=== PATIENT | female | born 1975 | race Caucasian/White ===

== ENCOUNTER 2017-10-04 19:43 | Emergency (ER) | payer OTHER ==
[~2017-10-04] VITALS: Ht 149.9 cm; Wt 59.0 kg
[~2017-10-04 19:43] MED LIST changes: -IOPAMIDOL 370 MG/ML 200 ML INFUS..BTL INJ ONE; -SODIUM CHLORIDE 0.9% 50ML 50 ML ONE
[2017-10-04 20:30] LABS: BASOPHILS % 0.4 % (0.0-1.0); EOSINOPHILS # (AUTO) 0.1 (0.0-0.4); EOSINOPHILS % 0.5 % (0.0-6.0); HEMATOCRIT 36.6 % (34.2-44.1); HEMOGLOBIN 13.2 g/dL (12.0-16.0); LYMPHOCYTES # (AUTO) 2.1 (1.0-3.2); LYMPHOCYTES % 20.7 % (18.0-39.1); MEAN CORPUSCULAR HEMOGLOBIN 32.2 pg (28-32); MEAN CORPUSCULAR HGB CONC 36.1 g/dL (31-35); MEAN CORPUSCULAR VOLUME 89.3 fL (81-99); MONOCYTES # (AUTO) 0.9 (0.2-0.8); MONOCYTES % 9.2 % (4.4-11.3); NEUTROPHILS # (AUTO) 6.9 (2.1-6.9); NEUTROPHILS % 68.9 % (38.7-80.0); PLATELET COUNT 335 x10e3/uL (140-360); RED CELL DISTRIBUTION WIDTH 12.5 % (11.7-14.4)
[2017-10-04 20:36] LABS: INR 0.87; PROTHROMBIN TIME 12.3 seconds (11.9-14.5)
[2017-10-04 20:37] LABS: PARTIAL THROMBOPLASTIN TIME 33.3 seconds (23.8-35.5)
[2017-10-04 20:48] LABS: ALANINE AMINOTRANSFERASE 33 IU/L (0-55); ALBUMIN 3.8 g/dL (3.5-5.0); ALBUMIN/GLOBULIN RATIO 0.9 (0.8-2.0); ALKALINE PHOSPHATASE 115 IU/L (40-150); ANION GAP 13.3 mmol/L (8-16); BLOOD UREA NITROGEN 7 mg/dL (7-26); BUN/CREATININE RATIO 10 (6-25); CALCIUM 9.6 mg/dL (8.4-10.2); CARBON DIOXIDE 26 mmol/L (22-29); CHLORIDE 104 mmol/L (98-107); CREATININE, SERUM 0.73 mg/dL (0.57-1.11); EST GLOMERULAR FILTRATION RATE > 60 ML/MIN (60-); GLUCOSE 98 mg/dL (74-118); POTASSIUM 3.3 mmol/L (3.5-5.1); SODIUM 140 mmol/L (136-145)
[2017-10-04] MEDS ORDERED: KETOROLAC TROMETHAMINE 30 MG/ML VIAL IV STA (21:58)
[2017-10-04] MEDS ORDERED: ONDANSETRON HCL INJ 2 MG/ML VIAL IV STA (21:58)
[2017-10-04] MEDS ORDERED: KETOROLAC TROMETHAMINE 30 MG/ML VIAL ONE (22:01)
[2017-10-04] MEDS ORDERED: ONDANSETRON HCL INJ 2 MG/ML VIAL ONE (22:01)
[2017-10-05 01:07] VITALS: BP 111/75
== END 2017-10-05 01:07 | disposition short-term general hospital (02) ==
LOC: ER 19:43
DX: R10.31 Right lower quadrant pain (principal); R10.32 Left lower quadrant pain; R11.2 Nausea with vomiting, unspecified; N83.9 Noninflammatory disorder of ovary, fallopian tube and broad ligament, unspecified; K51.90 Ulcerative colitis, unspecified, without complications
CPT/HCPCS: 36415; 80053; 83690; 85025; 85610; 85730; 96374; 96376; 99284; J1885; J2405

== ENCOUNTER → 2017-10-04 | Outpatient (CLI) | payer OTHER ==
[~2017-10-04] MED LIST: BENTYL; DICYCLOMINE; IOPAMIDOL 370 MG/ML 200 ML INFUS..BTL INJ ONE; LEVAQUIN; METRONIDAZOLE; SODIUM CHLORIDE 0.9% 50ML 50 ML ONE
--- NOTE | 2017-10-04 21:22 | Diagnostic Imaging Report ---
EXAM: CT ABDOMEN AND PELVIS with IV CONTRAST DATE: 10/04/2017 12:00 AM Time stamp on Exam: 2053 INDICATION: Right lower quadrant pain for 5 days COMPARISON: None TECHNIQUE: The abdomen and pelvis were scanned using a multidetector helical scanner. Coronal and sagittal reformations were obtained. Routine protocol performed. IV Contrast: 100 cc Isovue 370 Oral Contrast: Water CTDIvol has been reviewed. It is below the limits set by the Radiation Protocol Committee (RPC). FINDINGS: LOWER THORAX: No consolidations LIVER: No masses BILIARY: The gallbladder is unremarkable. No ductal dilation. SPLEEN: No masses PANCREAS: No masses ADRENALS: No nodules KIDNEYS: Symmetric perfusion. No enhancing masses. No hydronephrosis. GI TRACT: No distention, wall thickening or evidence of obstruction. Normal appendix. VESSELS: Unremarkable PERITONEUM/RETROPERITONEUM: Trace amount of free pelvic fluid. No free air. LYMPH NODES: No lymphadenopathy REPRODUCTIVE ORGANS: The uterus and left ovary are unremarkable. Within the right adnexa there is an irregular 4 cm cystic and tubular structure with surrounding inflammation. BLADDER: Unremarkable SOFT TISSUES: Unremarkable BONES: No suspicious bone lesions. IMPRESSION: Abnormal cystic and tubular structure in the right adnexa with adjacent inflammation. The differential includes pelvic inflammatory disease with abscess, pyosalpinx or right ovarian torsion. Normal appendix. Signed by: Dr. Akosua Mason M.D. on 10/04/2017 9:19 PM
== END ==
LOC: CT 20:26
PROVIDERS: ATTEND Internal Medicine Gastroenterology
DX: R10.31 Right lower quadrant pain (principal)
CPT/HCPCS: 74177; Q9967

== ENCOUNTER 2017-10-25 10:55 | Observation (INO) | payer OTHER ==
[~2017-10-25] VITALS: Ht 152.4 cm; Wt 65.3 kg
--- OUTSIDE RECORDS SUMMARY | 2017-10-25 10:58 | XMS REPORT ---
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 Allergies, Adverse Reactions, Alerts This patient has no known allergies or adverse reactions. Medications This patient has no known medications. Results Test Description Test Time Test Comments Text Results Atomic Results Result Comments CT ABDOMEN/PELVIS W [place] [address] Patient Name: BOO MELARA MR #: [id number] : 1975 Age/Sex: 42/F Req #: [id number] Adm Physician: Ordered by: DONALD BECKFORD MD Report #: [id number] Location: CT Room/Bed: Procedure: [id number] CT/CT ABDOMEN/PELVIS W Exam Date: 10/04/17 Exam Time: 2044 REPORT STATUS: Signed EXAM: CT ABDOMEN AND PELVIS with IV CONTRAST DATE: 10/04/2017 12:00 AM Time stamp on Exam: 2053 hours INDICATION: Right lower quadrant pain for 5 days COMPARISON: None TECHNIQUE: The abdomen and pelvis were scanned using a multidetector helical scanner. Coronal and sagittal reformations were obtained. Routine protocol performed. IV Contrast: 100 cc Isovue 370 Oral Contrast: Water CTDIvol has been reviewed. It is below the limits set by the Radiation Protocol Committee (RPC). FINDINGS: LOWER THORAX: No consolidations LIVER : No masses BILIARY: The gallbladder is unremarkable. No ductal dilation. SPLEEN: No masses PANCREAS: No masses ADRENALS: No nodules KIDNEYS: Symmetric perfusion. No enhancing masses. No hydronephrosis. GI TRACT: No distention, wall thickening or evidence of obstruction. Normal appendix. VESSELS: Unremarkable PERITONEUM/RETROPERITONEUM: Trace amount of free pelvic fluid. No free air. LYMPH NODES: No lymphadenopathy REPRODUCTIVE ORGANS: The uterus and left ovary are unremarkable. Within the right adnexa there is an irregular 4 cm cystic and tubular structure with surrounding inflammation. BLADDER: Unremarkable SOFT TISSUES: Unremarkable BONES: No suspicious bone lesions. IMPRESSION: Abnormal cystic and tubular structure in the right adnexa with adjacent inflammation. The differential includes pelvic inflammatory disease with abscess, pyosalpinx or right ovarian torsion. Normal appendix. Signed by: Dr. Harsha Santillan M.D. on 10/04/2017 9:19 PM Dictated By: HARSHA SANTILLAN MD 18 Transcribed By: WILTON on 2118 COPY TO: DONALD BECKFORD MD
[2017-10-25] MEDS ORDERED: SODIUM CHLORIDE 0.9% 1000ML 1,000 ML IV STA (11:26)
[2017-10-25] MEDS ORDERED: MORPHINE SULFATE 4 MG/ML SYR IV STA (11:26)
[2017-10-25] MEDS ORDERED: ONDANSETRON HCL INJ 2 MG/ML VIAL IV STA (11:26)
[2017-10-25] MEDS ORDERED: DIATRIZOATE MEGL/DIATRIZOA SOD 30 ML BTL PO ONE (11:42)
[2017-10-25 12:06] LABS: BILIRUBIN,URINE 1+ (NEGATIVE); CLARITY,URINE CLOUDY (CLEAR); COLOR,URINE YELLOW (YELLOW); KETONES,URINE 1+ (NEGATIVE); LEUKOCYTE ESTERASE ,URINE NEGATIVE (NEGATIVE); NITRITE,URINE NEGATIVE (NEGATIVE); PROTEIN,URINE DIPSTICK NEGATIVE (NEGATIVE); URINE UROBILINOGEN 0.2 mg/dL (0.2 - 1)
[2017-10-25 12:10] LABS: PREGNANCY TEST, URINE NEGATIVE (NEGATIVE)
[2017-10-25 12:24] LABS: RBC,URINE 0-5 /HPF (0-5); WBC,URINE (MAN) 0-5 /HPF (0-5)
[2017-10-25 12:25] LABS: AMORPHOUS SEDIMENT,URINE MANY (FEW); BACTERIA,URINE FEW /HPF
[2017-10-25 12:51] LABS: BASOPHILS # (AUTO) 0.1 (0.0-0.1); BASOPHILS % 0.5 % (0.0-1.0); EOSINOPHILS # (AUTO) 0.1 (0.0-0.4); EOSINOPHILS % 0.8 % (0.0-6.0); HEMATOCRIT 35.1 % (34.2-44.1); HEMOGLOBIN 12.4 g/dL (12.0-16.0); LYMPHOCYTES # (AUTO) 1.3 (1.0-3.2); LYMPHOCYTES % 10.3 % (18.0-39.1); MEAN CORPUSCULAR HEMOGLOBIN 31.7 pg (28-32); MEAN CORPUSCULAR HGB CONC 35.3 g/dL (31-35); MEAN CORPUSCULAR VOLUME 89.8 fL (81-99); MONOCYTES # (AUTO) 1.2 (0.2-0.8); MONOCYTES % 9.7 % (4.4-11.3); NEUTROPHILS # (AUTO) 9.7 (2.1-6.9); NEUTROPHILS % 78.3 % (38.7-80.0); PLATELET COUNT 364 x10e3/uL (140-360); RED BLOOD COUNT 3.91 x10e6/uL (3.6-5.1); RED CELL DISTRIBUTION WIDTH 12.8 % (11.7-14.4)
[2017-10-25 13:20] LABS: ALANINE AMINOTRANSFERASE 83 IU/L (0-55); ALBUMIN 3.7 g/dL (3.5-5.0); ALBUMIN/GLOBULIN RATIO 0.9 (0.8-2.0); ALKALINE PHOSPHATASE 115 IU/L (40-150); AMYLASE 45 U/L (25-125); ANION GAP 12.2 mmol/L (8-16); BLOOD UREA NITROGEN 9 mg/dL (7-26); BUN/CREATININE RATIO 13 (6-25); CALCIUM 8.9 mg/dL (8.4-10.2); CARBON DIOXIDE 27 mmol/L (22-29); CHLORIDE 104 mmol/L (98-107); EST GLOMERULAR FILTRATION RATE > 60 ML/MIN (60-); GLUCOSE 97 mg/dL (74-118); LIPASE 12 U/L (8-78); POTASSIUM 3.2 mmol/L (3.5-5.1); SODIUM 140 mmol/L (136-145)
[2017-10-25] MEDS ORDERED: MORPHINE SULFATE 2 MG/ML SYR ONE (13:22)
[2017-10-25] MEDS ORDERED: IOPAMIDOL 370 MG/ML 200 ML INFUS..BTL INJ ONE (14:14)
[2017-10-25] MEDS ORDERED: SODIUM CHLORIDE 0.9% 50ML 50 ML ONE (14:14)
--- NOTE | 2017-10-25 14:43 | Diagnostic Imaging Report ---
PROCEDURE: CT ABDOMEN AND PELVIS WITH CONTRAST TECHNIQUE: The abdomen and pelvis were scanned utilizing a multidetector helical scanner from the diaphragm to the lesser trochanter after the IV administration of 100 cc of Isovue 370 and the oral administration of Gastroview. Coronal and sagittal multiplanar reformations were obtained. DLP: 284.6 mGy-cm COMPARISON: Abdominal CT 10/04/2017. INDICATIONS: DIVERTICULITIS FINDINGS: LOWER THORAX: Normal. HEPATOBILIARY: No focal hepatic lesions. No biliary ductal dilatation. SPLEEN: No splenomegaly. PANCREAS: No focal masses or ductal dilatation. ADRENALS: No adrenal nodules. KIDNEYS/URETERS: No hydronephrosis, stones, or solid mass lesions. PELVIC ORGANS/BLADDER: Previous right adnexal cystic structure is no longer visualized. A new hyperattenuating 1.4 cm lesion in the left ovary may represent a hemorrhagic cyst but is suboptimally evaluated with CT. PERITONEUM / RETROPERITONEUM: No free air or fluid. LYMPH NODES: Increased size of a nonenlarged right lower quadrant mesenteric lymph node measuring 0.9 cm, likely reactive VESSELS: Unremarkable. GI TRACT: No evidence of bowel obstruction or diverticulitis. Diffuse mild colonic wall and haustral thickening throughout the colon, most prominent in the ascending colon and cecum. Appendix is completely filled with enteric contrast and normal. BONES AND SOFT TISSUES: Unremarkable. IMPRESSION: 1. Resolution of the previous right adnexal cystic structure with adjacent stranding. 2. No evidence of diverticulitis. Diffuse colonic wall thickening is concerning for colitis. In the setting of possible antibiotic administration for the previous right adnexal process, consider correlation for possibility of C. difficile. 3. New hyperattenuating 1.4 cm lesion in the left ovary may represent a hemorrhagic cyst. Consider follow up ultrasound in 8-12 weeks. Dictated by: Minh Carrillo M.D. on 10/25/2017 at 14:52 Electronically approved by: Minh Carrillo M.D. on 10/25/2017 at 14:52
[2017-10-25 14:49] LABS: CREATINE KINASE 26 IU/L (29-168)
[2017-10-25] MEDS ORDERED: METRONIDAZOLE 500MG/NS 100ML 100 ML IV STA (15:41)
[2017-10-25] MEDS ORDERED: KETOROLAC TROMETHAMINE 30 MG/ML VIAL IV STA (16:07)
[2017-10-25] MEDS ORDERED: DICYCLOMINE HCL 20 MG/2 ML VIAL IM ONE (16:15)
[2017-10-25] MEDS ORDERED: CIPROFLOXACIN 400 MG/D5W 200ML 200 ML IV NR (16:15)
[2017-10-25] MEDS ORDERED: LEVOFLOXACIN 750MG/D5W 150ML 150 ML IV ONE (16:15)
[2017-10-25] MEDS ORDERED: SODIUM CHLORIDE FLUSH 10 ML SYR INJ PRN (16:30)
[2017-10-25] MEDS ORDERED: PROMETHAZINE HCL (IM) 25 MG/ML VIAL IV PRN (16:30)
[2017-10-25] MEDS ORDERED: LEVOFLOXACIN 500MG/D5W 100ML IV SCH (16:30)
[2017-10-25] MEDS: SODIUM CHLORIDE 0.9% 1000ML 1,000 ML IV SCH ×2 (17:56→23:25)
[2017-10-25] MEDS: METRONIDAZOLE 500MG/NS 100ML 100 ML IV SCH ×2 (17:56→23:04)
[2017-10-25] MEDS: LEVOFLOXACIN 500MG/D5W 100ML 100 ML IV SCH (17:56)
[2017-10-25] MEDS: ONDANSETRON HCL INJ 2 MG/ML VIAL IV PRN (17:57)
[2017-10-25] MEDS: PROMETHAZINE 12.5MG/ NACL 0.9% 50 ML IV PRN (17:57)
[2017-10-25] MEDS ORDERED: METRONIDAZOLE 500MG/NS 100ML IV SCH (18:00)
[2017-10-25] MEDS ORDERED: MORPHINE SULFATE 2 MG/ML SYR IV STA (18:08)
[2017-10-25] MEDS ORDERED: DEXAMETHASONE SOD PHOS 10 MG/1 ML VIAL IV ONE (18:30)
[2017-10-25 19:55] VITALS: BP 102/58
[2017-10-25 20:30] VITALS: BP 102/58
[2017-10-25] MEDS ORDERED: POTASSIUM CHLORIDE 10 MEQ TABCR PO ONE (23:00)
[2017-10-25] MEDS: ACETAMINOPHEN 325 MG TAB PO PRN (23:05)
[2017-10-25 23:58] VITALS: BP 102/58
[2017-10-26] VITALS (8 sets, daily range): BP systolic 93–121; BP diastolic 53–74
[2017-10-26] MEDS ORDERED: CARAFATE1 GM/10 ML PO (00:14)
[2017-10-26] MEDS: METRONIDAZOLE 500MG/NS 100ML 100 ML IV SCH ×3 (05:16→17:06)
[2017-10-26] MEDS: PROMETHAZINE 12.5MG/ NACL 0.9% 50 ML IV PRN (05:16)
[2017-10-26] MEDS ORDERED: PANTOPRAZOLE 40 MG 10ML VIAL IV STA (05:23)
[2017-10-26] MEDS ORDERED: PEG (High)/E-LYTE SOLN 4,000 ML BTL PO ONE (05:30)
[2017-10-26] MEDS ORDERED: SUCRALFATE1 GM PO (05:50)
[2017-10-26] MEDS ORDERED: DICYCLOMINE HCL20 MG PO (05:50)
[2017-10-26 06:12] LABS: BASOPHILS % 0.5 % (0.0-1.0); EOSINOPHILS # (AUTO) 0.2 (0.0-0.4); EOSINOPHILS % 2.9 % (0.0-6.0); HEMATOCRIT 29.4 % (34.2-44.1); LYMPHOCYTES # (AUTO) 1.3 (1.0-3.2); LYMPHOCYTES % 15.2 % (18.0-39.1); MEAN CORPUSCULAR HEMOGLOBIN 31.3 pg (28-32); MEAN CORPUSCULAR VOLUME 92.2 fL (81-99); MONOCYTES # (AUTO) 0.9 (0.2-0.8); MONOCYTES % 10.4 % (4.4-11.3); NEUTROPHILS # (AUTO) 5.9 (2.1-6.9); NEUTROPHILS % 70.6 % (38.7-80.0); PLATELET COUNT 290 x10e3/uL (140-360); RED BLOOD COUNT 3.19 x10e6/uL (3.6-5.1); RED CELL DISTRIBUTION WIDTH 12.6 % (11.7-14.4)
[2017-10-26 06:33] LABS: ALANINE AMINOTRANSFERASE 50 IU/L (0-55); ALBUMIN 2.8 g/dL (3.5-5.0); ALKALINE PHOSPHATASE 87 IU/L (40-150); ANION GAP 10.2 mmol/L (8-16); BLOOD UREA NITROGEN 8 mg/dL (7-26); BUN/CREATININE RATIO 12 (6-25); CALCIUM 7.8 mg/dL (8.4-10.2); CARBON DIOXIDE 23 mmol/L (22-29); CHLORIDE 110 mmol/L (98-107); CREATININE, SERUM 0.69 mg/dL (0.57-1.11); EST GLOMERULAR FILTRATION RATE > 60 ML/MIN (60-); GLUCOSE 81 mg/dL (74-118); LIPASE 8 U/L (8-78); POTASSIUM 3.2 mmol/L (3.5-5.1); SODIUM 140 mmol/L (136-145)
[2017-10-26] MEDS: SODIUM CHLORIDE 0.9% 1000ML 1,000 ML IV SCH ×2 (07:44→14:22)
[2017-10-26] MEDS: DICYCLOMINE HCL 20 MG TAB PO SCH ×3 (07:45→20:59)
[2017-10-26] MEDS: PANTOPRAZOLE 40 MG 10ML VIAL IV SCH ×2 (07:45→16:18)
[2017-10-26] MEDS: MORPHINE SULFATE 2 MG/ML SYR IV PRN ×3 (08:14→20:12)
[2017-10-26] MEDS: ONDANSETRON HCL INJ 2 MG/ML VIAL IV PRN (08:15)
[2017-10-26] MEDS: ACETAMINOPHEN 325 MG TAB PO PRN ×2 (14:22→23:55)
[2017-10-26] MEDS: LEVOFLOXACIN 500MG/D5W 100ML 100 ML IV SCH (16:18)
[2017-10-26] MEDS: VANCOMYCIN 250MG/5ML ORAL SOLN PO SCH (17:09)
[2017-10-27] VITALS: BP 94/51
[2017-10-27] MEDS: SODIUM CHLORIDE 0.9% 1000ML 1,000 ML IV SCH ×3 (00:17→16:34)
[2017-10-27] MEDS: VANCOMYCIN 250MG/5ML ORAL SOLN PO SCH ×4 (02:45→18:00)
[2017-10-27] MEDS: METRONIDAZOLE 500MG/NS 100ML 100 ML IV SCH ×4 (02:45→18:00)
[2017-10-27 04:00] VITALS: BP 96/56
[2017-10-27] MEDS ORDERED: CITRATE OF MAGNESIA 300ML BOTTLE PO ONE ×4 (06:15→08:00)
[2017-10-27] MEDS ORDERED: BISACODYL 5 MG TAB EC PO ONE (06:15)
[2017-10-27 07:36] LABS: BASOPHILS % 0.8 % (0.0-1.0); EOSINOPHILS # (AUTO) 0.3 (0.0-0.4); EOSINOPHILS % 6.4 % (0.0-6.0); HEMOGLOBIN 9.9 g/dL (12.0-16.0); LYMPHOCYTES # (AUTO) 1.3 (1.0-3.2); LYMPHOCYTES % 25.3 % (18.0-39.1); MEAN CORPUSCULAR HEMOGLOBIN 31.8 pg (28-32); MEAN CORPUSCULAR HGB CONC 35.4 g/dL (31-35); MONOCYTES # (AUTO) 0.6 (0.2-0.8); MONOCYTES % 10.9 % (4.4-11.3); NEUTROPHILS # (AUTO) 2.9 (2.1-6.9); NEUTROPHILS % 56.2 % (38.7-80.0); PLATELET COUNT 315 x10e3/uL (140-360); RED BLOOD COUNT 3.11 x10e6/uL (3.6-5.1); RED CELL DISTRIBUTION WIDTH 12.8 % (11.7-14.4)
[2017-10-27 08:00] VITALS: BP 117/70
[2017-10-27 08:02] LABS: BLOOD UREA NITROGEN < 5 mg/dL (7-26); CALCIUM 7.9 mg/dL (8.4-10.2); CARBON DIOXIDE 25 mmol/L (22-29); CHLORIDE 112 mmol/L (98-107); CREATININE, SERUM 0.66 mg/dL (0.57-1.11); EST GLOMERULAR FILTRATION RATE > 60 ML/MIN (60-); GLUCOSE 93 mg/dL (74-118); SODIUM 143 mmol/L (136-145)
[2017-10-27 08:03] LABS: BUN/CREATININE RATIO 8 (6-25)
[2017-10-27] MEDS: PANTOPRAZOLE 40 MG 10ML VIAL IV SCH ×2 (08:50→16:34)
[2017-10-27] MEDS: DICYCLOMINE HCL 20 MG TAB PO SCH ×3 (08:50→22:25)
[2017-10-27] MEDS ORDERED: POTASSIUM CHLORIDE 20 MEQ TAB CR PO ONE ×2 (10:30→12:00)
[2017-10-27 12:00] VITALS: BP 102/61
[2017-10-27] MEDS: ONDANSETRON HCL INJ 2 MG/ML VIAL IV PRN (14:58)
[2017-10-27] MEDS: MORPHINE SULFATE 2 MG/ML SYR IV PRN (15:01)
[2017-10-27 16:00] VITALS: BP 101/61
[2017-10-27] MEDS: LEVOFLOXACIN 500MG/D5W 100ML 100 ML IV SCH (16:34)
[2017-10-27 20:00] VITALS: BP 97/53
[2017-10-28] VITALS: BP 95/49
[2017-10-28] MEDS: SODIUM CHLORIDE 0.9% 1000ML 1,000 ML IV SCH ×3 (00:17→17:02)
[2017-10-28] MEDS: METRONIDAZOLE 500MG/NS 100ML 100 ML IV SCH ×4 (00:34→18:44)
[2017-10-28] MEDS: VANCOMYCIN 250MG/5ML ORAL SOLN PO SCH ×4 (00:34→17:02)
[2017-10-28 04:00] VITALS: BP 105/66
[2017-10-28 08:00] VITALS: BP 99/54
[2017-10-28] MEDS: DICYCLOMINE HCL 20 MG TAB PO SCH ×3 (08:35→21:00)
[2017-10-28] MEDS: PANTOPRAZOLE 40 MG 10ML VIAL IV SCH ×2 (08:35→17:02)
[2017-10-28 12:00] VITALS: BP 98/54
[2017-10-28 16:00] VITALS: BP 99/55
[2017-10-28] MEDS: LEVOFLOXACIN 500MG/D5W 100ML 100 ML IV SCH (17:02)
[2017-10-28] MEDS: MORPHINE SULFATE 2 MG/ML SYR IV PRN (21:05)
[2017-10-29] MEDS: ACETAMINOPHEN 325 MG TAB PO PRN ×2 (00:01→06:21)
[2017-10-29] MEDS: SODIUM CHLORIDE 0.9% 1000ML 1,000 ML IV SCH ×3 (00:17→16:17)
[2017-10-29] MEDS: METRONIDAZOLE 500MG/NS 100ML 100 ML IV SCH ×4 (06:00→17:32)
[2017-10-29] MEDS: VANCOMYCIN 250MG/5ML ORAL SOLN PO SCH ×4 (06:00→17:32)
[2017-10-29] MEDS: MORPHINE SULFATE 2 MG/ML SYR IV PRN (06:18)
[2017-10-29] MEDS: ONDANSETRON HCL INJ 2 MG/ML VIAL IV PRN (06:19)
[2017-10-29 07:05] LABS: BASOPHILS % 0.8 % (0.0-1.0); EOSINOPHILS # (AUTO) 0.3 (0.0-0.4); EOSINOPHILS % 5.9 % (0.0-6.0); HEMATOCRIT 28.4 % (34.2-44.1); HEMOGLOBIN 9.8 g/dL (12.0-16.0); LYMPHOCYTES % 43.1 % (18.0-39.1); MEAN CORPUSCULAR HEMOGLOBIN 31.2 pg (28-32); MEAN CORPUSCULAR HGB CONC 34.5 g/dL (31-35); MEAN CORPUSCULAR VOLUME 90.4 fL (81-99); MONOCYTES # (AUTO) 0.7 (0.2-0.8); MONOCYTES % 13.8 % (4.4-11.3); NEUTROPHILS # (AUTO) 1.7 (2.1-6.9); NEUTROPHILS % 35.3 % (38.7-80.0); PLATELET COUNT 281 x10e3/uL (140-360); RED BLOOD COUNT 3.14 x10e6/uL (3.6-5.1); RED CELL DISTRIBUTION WIDTH 12.7 % (11.7-14.4)
[2017-10-29 07:31] LABS: ANION GAP 10.1 mmol/L (8-16); BLOOD UREA NITROGEN < 5 mg/dL (7-26); CALCIUM 7.8 mg/dL (8.4-10.2); CARBON DIOXIDE 26 mmol/L (22-29); CHLORIDE 109 mmol/L (98-107); CREATININE, SERUM 0.68 mg/dL (0.57-1.11); EST GLOMERULAR FILTRATION RATE > 60 ML/MIN (60-); GLUCOSE 95 mg/dL (74-118); POTASSIUM 3.1 mmol/L (3.5-5.1); SODIUM 142 mmol/L (136-145)
[2017-10-29 07:38] LABS: BUN/CREATININE RATIO 7 (6-25)
[2017-10-29 08:00] VITALS: BP 99/55
[2017-10-29 08:12] VITALS: BP 89/55
[2017-10-29 08:12] LABS: ANISOCYTOSIS SLIGHT; EOSINOPHILS % (MANUAL) 4 % (0-7); LYMPHOCYTES % (MANUAL) 39 % (19-48); METAMYELOCYTES % (MANUAL) 1 % (0-0); MONOCYTES % (MANUAL) 13 % (3.4-9.0); NEUTROPHILS % (MANUAL) 42 % (40-74); PLATELET ESTIMATE ADEQUATE; PLATELET MORPHOLOGY COMMENT FEW LARGE; RBC MORPHOLOGY COMMENT NORMAL
[2017-10-29 08:13] LABS: HYPOCHROMASIA SLIGHT
[2017-10-29] MEDS ORDERED: POTASSIUM CHLORIDE 20 MEQ TAB CR PO STA (08:58)
[2017-10-29] MEDS: PANTOPRAZOLE 40 MG 10ML VIAL IV SCH ×2 (09:00→17:00)
[2017-10-29] MEDS: DICYCLOMINE HCL 20 MG TAB PO SCH ×3 (09:00→20:31)
[2017-10-29] MEDS ORDERED: POTASSIUM CHLORIDE 20 MEQ TAB CR PO NR (11:00)
[2017-10-29 13:18] VITALS: BP 110/65
[2017-10-29] MEDS: LEVOFLOXACIN 500MG/D5W 100ML 100 ML IV SCH (17:00)
[2017-10-29 17:23] VITALS: BP 107/69
[2017-10-29 20:00] VITALS: BP 108/58
[2017-10-30] VITALS: BP 104/58
[2017-10-30] MEDS: SODIUM CHLORIDE 0.9% 1000ML 1,000 ML IV SCH ×2 (02:30→08:59)
[2017-10-30 04:00] VITALS: BP 105/66
[2017-10-30] MEDS: METRONIDAZOLE 500MG/NS 100ML 100 ML IV SCH ×3 (06:34→13:36)
[2017-10-30] MEDS: VANCOMYCIN 250MG/5ML ORAL SOLN PO SCH ×3 (06:34→13:36)
[2017-10-30 06:39] LABS: ANION GAP 9.4 mmol/L (8-16); BLOOD UREA NITROGEN < 5 mg/dL (7-26); CALCIUM 8.1 mg/dL (8.4-10.2); CARBON DIOXIDE 27 mmol/L (22-29); CHLORIDE 110 mmol/L (98-107); CREATININE, SERUM 0.75 mg/dL (0.57-1.11); EST GLOMERULAR FILTRATION RATE > 60 ML/MIN (60-); GLUCOSE 101 mg/dL (74-118); POTASSIUM 3.4 mmol/L (3.5-5.1); SODIUM 143 mmol/L (136-145)
[2017-10-30 06:54] LABS: BUN/CREATININE RATIO 7 (6-25)
[2017-10-30 08:00] VITALS: BP 106/62
[2017-10-30] MEDS: DICYCLOMINE HCL 20 MG TAB PO SCH (08:59)
[2017-10-30] MEDS: PANTOPRAZOLE 40 MG 10ML VIAL IV SCH (08:59)
[2017-10-30 12:00] VITALS: BP 103/63
[2017-10-30] MEDS ORDERED: POTASSIUM CHLORIDE 20 MEQ TAB CR PO ONE (15:00)
== END 2017-10-30 15:57 | disposition home or self-care (01) ==
LOC: ER 10:55 → ERHOLD 18:43 → MED/SURG2 18:45
DX: A04.72 Enterocolitis due to Clostridium difficile, not specified as recurrent (principal); K21.9 Gastro-esophageal reflux disease without esophagitis; E87.6 Hypokalemia; E86.0 Dehydration; R10.10 Upper abdominal pain, unspecified; Z90.721 Acquired absence of ovaries, unilateral; N83.202 Unspecified ovarian cyst, left side
CPT/HCPCS: 36415 ×5; 74177; 80048 ×3; 80053 ×2; 81001; 81025; 82150; 82550; 82553; 82948; 83605; 83690 ×2; 84484; 84702; 85025 ×4; 87040; 87045; 87086; 87493; 93005; 96367; 96375; 99284; G0378 ×6; J0500; J1885; J1956 ×5; J2270 ×4; J2405 ×4; J2550 ×2; J7030 ×6; Q9967

== ENCOUNTER → 2019-04-04 | Day surgery (SDC) | payer BC ==
[~2019-04-04] MED LIST changes: +CARAFATE1 GM/10 ML PO; +DICYCLOMINE HCL20 MG PO; +FENTANYL CITRATE/PF 100MCG/2 ML INJ ONE; +HYOSCYAMINE 0.125 MG TAB ONE; +MIDAZOLAM HCL 2 MG/2 ML VIAL ONE; +ONDANSETRON HCL INJ 2MG/ML 2ML 2 MG/ML VIAL ONE; +SIMETHICONE 40 MG/0.6 ML BTL ONE; +SUCRALFATE1 GM PO
--- OUTSIDE RECORDS SUMMARY | 2019-04-04 11:17 | XMS REPORT | Clinical Summary ---
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 04/23/2019 Active ibuprofen (ADVIL,MOTRIN) Take 1 tablet 30 tablet 0 600 MG tablet (600 mg 9 total) by mouth every 8 (eight) hours as needed for moderate pain for up to 30 days. 04/23/2019 Active cyclobenzaprine Take 1 tablet 20 tablet 0 (FLEXERIL) 5 mg tablet (5 mg total) 9 by mouth 2 (two) times a day as needed for muscle spasms for up to 30 days. Active Problems Not on file Encounters Care Team Description Date Type Specialty Nathaniel Rooney Jr., MD Acute left-sided low back pain without sciatica (Primary Dx) 03/23/2019 Emergency Emergency Medicine - 03/24/2019 after 04/03/2018 Family History Medical History Relation Name Comments Heart disease Mother Relation Name Status Comments Father Alive Mother Social History Date Tobacco Use Types Packs/Day Years Used Never Smoker Smokeless Tobacco: Never Used Alcohol Use Drinks/Week oz/Week Comments Yes Sex Assigned at Date Recorded Not on file Industry Job Start Date Occupation Not on file Not on file Not on file Travel End Travel History Travel Start No recent travel history available. Last Filed Vital Signs Time Taken Vital Sign Reading 03/24/2019 2:00 AM CDT Blood Pressure 100/53 03/24/2019 2:00 AM CDT Pulse 55 03/24/2019 2:00 AM CDT Temperature 36.6 C (97.8 F) 03/24/2019 2:00 AM CDT Respiratory Rate 16 03/24/2019 2:00 AM CDT Oxygen Saturation 94% - Inhaled Oxygen - Concentration 03/23/2019 6:21 PM CDT Weight 65.8 kg (145 lb) 03/23/2019 6:21 PM CDT Height 149.9 cm (4' 11") 03/23/2019 6:21 PM CDT Body Mass Index 29.29 Plan of Treatment Health Maintenance Due Date Last Done Comments INFLUENZA VACCINE 04/24/2019 Procedures Comments Procedure Name Priority Date/Time Associated Diagnosis CT ABDOMEN PELVIS W STAT 03/23/2019 CONTRAST 9:[address] LUMBAR SPINE WO STAT 03/23/2019 CONTRAST 9:14 PM CDT ESTIMATED GFR STAT 03/23/2019 7:55 PM CDT LACTIC ACID LEVEL Routine 03/23/2019 7:55 PM CDT LIPASE LEVEL STAT 03/23/2019 7:55 PM CDT COMPREHENSIVE METABOLIC STAT 03/23/2019 PANEL 7:55 PM CDT HC COMPLETE BLD COUNT STAT 03/23/2019 W/AUTO DIFF 7:55 PM CDT HCG QUALITATIVE, URINE Routine 03/23/2019 SCREEN 7:07 PM CDT URINALYSIS SCREEN AND Routine 03/23/2019 MICROSCOPY, WITH REFLEX 7:07 PM CDT TO CULTURE after 04/03/2018 Results * CT Abdomen Pelvis W Contrast (03/23/2019 9:14 PM CDT) Specimen Narrative Performed At CT ABDOMEN PELVIS W CONTRAST [facility] CLINICAL INDICATION: abdominal painL flank pain TECHNIQUE:Multidetector CT imaging of the abdomen and pelvis was performed following the intravenous administration of iodinated contrast with multiplanar reconstructions.CT imaging was performed with iterative reconstruction technique and/or automated exposure control to reduce radiation dose. COMPARISON:None FINDINGS: LOWER THORAX:Clear. LIVER:Normal. BILIARY:Normal. SPLEEN:Normal. PANCREAS:Normal. ADRENALS:Normal. KIDNEYS:No mass or hydronephrosis. GI:Large and small bowel are normal in caliber.There are no inflammatory changes.Appendix is visualized and appears normal. VASCULAR:Unremarkable LYMPH NODES:No enlarged lymph nodes in the abdomen or pelvis. PELVIS:The urinary bladder is normal for degree of distention. The uterus is without abnormality.There is a 1.3 cm corpus luteal cyst in the left ovary. BONES:There are no acute osseous abnormalities. OTHER:No ascites or pneumoperitoneum. IMPRESSION: No acute intra-abdominal abnormality is identified. [id number] Procedure Note Interface, Radiology Results - 03/23/2019 9:[address] ABDOMEN PELVIS W CONTRAST CLINICAL INDICATION: abdominal pain L flank pain TECHNIQUE: Multidetector CT imaging of the abdomen and pelvis was performed following the intravenous administration of iodinated contrast with multiplanar reconstructions. CT imaging was performed with iterative reconstruction technique and/or automated exposure control to reduce radiation dose. COMPARISON: None FINDINGS: LOWER THORAX: Clear. LIVER: Normal. BILIARY: Normal. SPLEEN: Normal. PANCREAS: Normal. ADRENALS: Normal. KIDNEYS: No mass or hydronephrosis. GI: Large and small bowel are normal in caliber. There are no inflammatory changes. Appendix is visualized and appears normal. VASCULAR: Unremarkable LYMPH NODES: No enlarged lymph nodes in the abdomen or pelvis. PELVIS: The urinary bladder is normal for degree of distention. The uterus is without abnormality. There is a 1.3 cm corpus luteal cyst in the left ovary. BONES: There are no acute osseous abnormalities. OTHER: No ascites or pneumoperitoneum. IMPRESSION: No acute intra-abdominal abnormality is identified. [facility]-[id number] Performing Organization Address City/State/Zipcode Phone Number [facility] [address] [place] [address] * CT Lumbar Spine Wo Contrast (03/23/2019 9:14 PM CDT) Specimen Narrative Performed At EXAMINATION:CT LUMBAR SPINE WO CONTRAST [facility] [place] CLINICAL HISTORY:low back pain. COMPARISON: None. FINDINGS:: Noncontrast CT of the lumbar spine is interpreted. CT imaging was performed with iterative reconstruction techniques and/or automated exposure control to reduce radiation dose. Lowest fully formed disc space is designated L5-S1. The vertebral heights are preserved. No fracture or aggressive bone lesion is seen. L1-2: Unremarkable. L2-3: Unremarkable. L3-4: Unremarkable. L4-5: Unremarkable. L5-S1: Small Schmorl's node in the superior endplate of S1. Minimal disc bulge. No significant stenosis. The paraspinous soft tissues are unremarkable. IMPRESSION: No acute abnormality of the lumbar spine is identified. [facility]-[id number] Procedure Note Hm Interface, Radiology Results Incoming - 03/23/2019 9:22 PM CDT EXAMINATION: CT LUMBAR SPINE WO CONTRAST CLINICAL HISTORY: low back pain. COMPARISON: None. FINDINGS:: Noncontrast CT of the lumbar spine is interpreted. CT imaging was performed with iterative reconstruction techniques and/or automated exposure control to reduce radiation dose. Lowest fully formed disc space is designated L5-S1. The vertebral heights are preserved. No fracture or aggressive bone lesion is seen. L1-2: Unremarkable. L2-3: Unremarkable. L3-4: Unremarkable. L4-5: Unremarkable. L5-S1: Small Schmorl's node in the superior endplate of S1. Minimal disc bulge. No significant stenosis. The paraspinous soft tissues are unremarkable. IMPRESSION: No acute abnormality of the lumbar spine is identified. [facility]-[id number] Performing Organization Address City/[facility]/Zipcode Phone Number [facility] [address] [place] [address] * Estimated GFR (03/23/2019 7:55 PM CDT) Estimated GFR >=90 mL/min/1.73 m2 [place] Comment: RASTAFARI [facility] G1 >=90 Normal or high G2 60-89Mildly decreased [id number] Mildly to moderately decreased [id number] Moderately to severely decreased G4 15-29Severely decreased G5 <15Kidney failure The eGFR was calculated using the Chronic Kidney Disease Epidemiology Collaboration (CKD-EPI) equation. Interpretation is based on recommendations of the National Kidney Foundation-Kidney Disease Outcomes Quality Initiative (NKF-KDOQI) published in 2014. Specimen Plasma specimen Performing Organization Address City/State/Zipcode Phone Number [address] [place] [address] PATHOLOGY AND GENOMIC MEDICINE [facility] [address] * CBC with platelet and differential (03/23/2019 7:55 PM CDT) WBC 8.7 4.2 - 11.0 k/uL [facility] RBC 4.45 4.04 - 5.86 m/uL [facility] HGB 13.9 11.5 - 15.3 g/dL [facility] HCT 41.6 34.0 - 45.0 % [facility] MCV 93.5 80.0 - 98.0 fL [facility] MCH 31.2 27.0 - 34.0 pg [facility] MCHC 33.4 31.5 - 36.5 g/dL [facility] RDW - SD 42.6 37.0 - 51.0 fL [facility] MPV 10.0 7.4 - 10.4 fL [facility] Platelet count 309 150 - 400 k/uL [facility] Nucleated RBC 0.00 /100 WBC [facility] Neutrophils 60.1 36.0 - 66.0 % [facility] Lymphocytes 30.3 24.0 - 44.0 % [facility] Monocytes 6.6 (H) 0.0 - 6.0 % [facility] Eosinophils 2.2 0.0 - 6.0 % [facility] Basophils 0.5 0.0 - 1.2 % [facility] Immature 0.3 0.0 - 1.0 % [place] granulocytes [facility] Specimen Blood Performing Organization Address City/State/Zipcode Phone Number [facility] [address] [place] [address] PATHOLOGY AND GENOMIC MEDICINE [facility] [address] [place] [id number] [place] [address] * Lipase level (03/23/2019 7:55 PM CDT) Lipase 23 13 - 60 U/L [facility] Specimen Plasma specimen Performing Organization Address City/[facility] Phone Number [facility] [address] [place] [address] PATHOLOGY AND GENOMIC MEDICINE [address] * Lactic acid level (03/23/2019 7:55 PM CDT) Lactic acid 1.3 0.5 - 2.2 mmol/L [facility] Specimen Blood Performing Organization Address City/[facility] Phone Number [facility] [address] [place] [address] PATHOLOGY AND GENOMIC MEDICINE [address] * Comprehensive metabolic panel (03/23/2019 7:55 PM CDT) Sodium 141 135 - 150 mEq/L [facility] Potassium 3.8 3.5 - 5.0 mEq/L [facility] Chloride 103 98 - 112 mEq/L [facility] CO2 27 24 - 31 mmol/L [facility] Anion gap 11@ANIO 7 - 15 mEq/L [facility] BUN 15 7 - 18 mg/dL [facility] Creatinine 0.80 0.50 - 0.90 mg/dL [facility] Glucose 93 65 - 100 mg/dL [facility] Calcium 9.7 8.3 - 10.2 mg/dL [facility] Protein 8.3 6.3 - 8.3 g/dL [facility] Albumin 4.0 3.5 - 5.0 g/dL [facility] A/G ratio 0.9 0.7 - 3.8 [facility] Alkaline 114 (H) 0 - 104 U/L [place] phosphatase [facility] AST 26 10 - 35 U/L [facility] ALT 22 5 - 50 U/L [facility] Total bilirubin 0.3 0.2 - 1.2 mg/dL [facility] Specimen Plasma specimen Performing Organization Address City/State/Zipcode Phone Number [facility] [address] [place] [address] PATHOLOGY AND GENOMIC MEDICINE [facility] [address] [place] [address] HOSPITAL * Urinalysis screen and microscopy, with reflex to culture (03/23/2019 7:07 PM CDT) Specimen site Clean catch [facility] Color, UA Yellow [facility] Appearance, UA Clear [facility] Specific 1.025 1.001 - 1.035 [place] gravity, [facility] pH, UA 7.0 5.0 - 8.5 [facility] Protein, UA Negative Negative [facility] Glucose, UA Negative Negative [facility] Ketones, UA Negative Negative [facility] Bilirubin, UA Negative Negative [facility] Blood, UA Negative Negative [facility] Nitrite, UA Negative Negative [facility] Urobilinogen, Negative <2.0 [facility] Leukocyte Negative Negative [place] esterase, [facility] Epithelial Moderate /HPF [place] cells, [facility] WBC, UA 2 0 - 5 /HPF [facility] RBC, UA 2 0 - 5 /HPF [facility] Bacteria, UA Trace None seen [facility] Yeast, UA None seen [facility] Yeast with None seen [place] pseudohyphae, [facility] Specimen Urine Performing Organization Address City/State/Zipcode Phone Number [facility] [address] [place] [address] PATHOLOGY AND GENOMIC MEDICINE [facility] [address] * hCG qualitative, urine screen (03/23/2019 7:07 PM CDT) hCG Negative Negative [place] qualitative, Comment: RASTAFARI urine The manufacturers stated ECRU sensitivity of HcG test for HOSPITAL serum is >/=10 mIU/ml and urine is >/=20mIU/ml. Specimen Urine Performing Organization Address City/State/Zipcode Phone Number [facility] [address] [place] [address] PATHOLOGY AND GENOMIC MEDICINE [facility] [address] [place] [address] HOSPITAL after 04/03/2018 Insurance Type Payer Benefit Subscriber ID Effective Phone Address Plan / Dates Group PPO BCBS BCBS xxxxxxxxxxxx [id number] CHOICE resent PPO/BEBA SHELBY PPO Advance Directives Patient has advance care planning documents on file. For more information, les e contact: Jonathan Franklin [address] [place] [address]
[2019-04-04 16:50] LABS: WBC,FECAL (FECAL LACTOFERRIN) NEGATIVE (NEGATIVE)
[2019-04-04 17:40] VITALS: BP 102/68
--- NOTE | 2019-04-05 00:36 | Operative Report ---
DATE OF PROCEDURE: 04/04/2019 SURGEON: Geremias Sarah MD PROCEDURE: EGD with biopsies, colonoscopy with polypectomy and biopsies. INDICATION FOR EGD: Heartburn, bloating. INDICATIONS FOR COLONOSCOPY: Diarrhea, recurrent. MEDICATIONS: The patient was done under MAC, please see anesthesiologist's note. PROCEDURE IN DETAIL: With the patient in left lateral decubitus position, a flexible fiberoptic Olympus gastroscope was introduced into the esophagus under direct visualization without any difficulty. There was some patchy erythema noted in distal esophagus. The scope was then advanced with ease into the stomach and mucosa overlying the antrum and the body revealed some patchy erythema and low-grade to moderate edema and biopsies were obtained and sent to stain for H. pylori. The pylorus was of normal contour and shape, was intubated with ease and the scope was advanced all the way to the second portion of the duodenum. Biopsies were obtained from the second portion and duodenal bulb to rule out sprue. The scope was then withdrawn back into the stomach and retroflexed mucosa overlying the fundus and cardia appeared to be within normal limits. The scope was then straightened out, it was subsequently withdrawn. The patient tolerated the procedure well. IMPRESSION: 1. Distal esophagitis, mild. 2. Gastritis, biopsied, biopsies sent to stain for H. pylori. 3. Rule out sprue. PLAN: Follow up histology. Initiate Protonix 40 mg one p.o. q.a.m. a.c. The patient was then turned around and after adequate lubrication of the anal canal, a flexible fiberoptic Olympus colonoscope was inserted into the rectum with ease and advanced all the way to the cecum. Mucosa overlying the cecum appeared to be within normal limits. The ileocecal valve was intubated and the scope was advanced into the terminal ileum. Biopsies were obtained. The scope was then withdrawn back into the colon. It was then withdrawn slowly, mucosa overlying the ascending transverse appeared to be within normal limits. Mild patchy inflammatory changes were noted in the left colon. Random biopsies were obtained. One minute polyp was noted in the sigmoid colon that was excised with the cold biopsy forceps. Similar inflammatory changes were noted in the rectum and biopsies were obtained. The scope was then retroflexed into the distal rectum. Small internal hemorrhoids were noted, none of which was actively bleeding. The scope was then straightened out, it was subsequently withdrawn, after securing an adequate stool specimen that was sent for the appropriate stool studies. The patient tolerated the procedure well. IMPRESSION: 1. Mild patchy left-sided colitis. 2. Sigmoid colon polyp excised with the cold biopsy forceps. 3. Proctitis, mild. 4. Internal hemorrhoids. PLAN: Follow up histology. Follow up stool studies. Start Bentyl 10 mg one p.o. t.i.d. The patient might benefit from a followup colonoscopy in 5-10 years. Geremias Sarah MD [facility]/MODL /[id number] cc: Han Oneal DO
[2019-04-05 15:16] LABS: C DIFFICILE TOXIN A&B AMP PROB NEGATIVE (NEGATIVE)
== END | disposition home or self-care (01) ==
LOC: OR 11:14
PROVIDERS: ATTEND Internal Medicine Gastroenterology
DX: K29.50 Unspecified chronic gastritis without bleeding (principal); K63.5 Polyp of colon; K51.50 Left sided colitis without complications; K20.9 Esophagitis, unspecified; K62.89 Other specified diseases of anus and rectum; K21.9 Gastro-esophageal reflux disease without esophagitis; K64.8 Other hemorrhoids; F41.9 Anxiety disorder, unspecified; Z88.1 Allergy status to other antibiotic agents
CPT/HCPCS: 36415; 43239; 45380; 83630; 83993; 84702; 87045; 87177; 87328; 87493; J2250; J2405; J3010

== ENCOUNTER 2019-04-24 16:59 | Emergency (ER) | payer BC ==
[~2019-04-24] VITALS: Ht 304.8 cm; Wt 65.3 kg
[~2019-04-24 16:59] MED LIST changes: -FENTANYL CITRATE/PF 100MCG/2 ML INJ ONE; -HYOSCYAMINE 0.125 MG TAB ONE; -MIDAZOLAM HCL 2 MG/2 ML VIAL ONE; -ONDANSETRON HCL INJ 2MG/ML 2ML 2 MG/ML VIAL ONE; -SIMETHICONE 40 MG/0.6 ML BTL ONE
--- OUTSIDE RECORDS SUMMARY | 2019-04-24 17:02 | XMS REPORT | Clinical Summary ---
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 04/23/2019 ibuprofen (ADVIL,MOTRIN) Take 1 tablet 30 tablet 0 600 MG tablet (600 mg 9 total) by mouth every 8 (eight) hours as needed for moderate pain for up to 30 days. 04/23/2019 cyclobenzaprine Take 1 tablet 20 tablet 0 [...] 03/23/2019 Emergency Emergency Medicine - 03/24/2019 after 04/23/2018 Family History Medical History Relation Name Comments [...] REFLEX 7:07 PM CDT TO CULTURE after 04/23/2018 Results * CT Abdomen Pelvis W Contrast [...] IMPRESSION: No acute intra-abdominal abnormality is identified. [facility]-[id number] Procedure Note Interface, Radiology Results - 03/23/2019 [...] IMPRESSION: No acute intra-abdominal abnormality is identified. [facility]-[id number] Performing Organization Address City/State/Zipcode Phone Number [facility] [address] [place] [address] * CT Lumbar Spine Wo Contrast (03/23/2019 9:14 PM CDT) Specimen Narrative Performed At EXAMINATION:[facility] CLINICAL HISTORY:low back pain. COMPARISON: None. FINDINGS:: [...] abnormality of the lumbar spine is identified. [facility]-[id number] Procedure Note Hm Interface, Radiology Results Incoming [...] abnormality of the lumbar spine is identified. [id number] Performing Organization Address City/[facility]/Zipcode Phone Number [facility] [address] [place] [address] * Estimated GFR (03/23/2019 7:55 PM CDT) Estimated GFR >=90 mL/min/1.73 m2 [place] Comment: [facility] G1 >=90 Normal or high G2 60-89Mildly decreased [id number] Mildly to moderately decreased D2s28-95 Moderately to severely decreased G4 15-29Severely decreased G5 <15Kidney failure The eGFR was calculated using the Chronic Kidney Disease Epidemiology Collaboration (CKD-EPI) equation. Interpretation is based on recommendations of the National Kidney Foundation-Kidney Disease Outcomes Quality Initiative (NKF-KDOQI) published in 2014. Specimen Plasma specimen Performing Organization Address City/State/Zipcode Phone Number [facility] DEPARTMENT OF [address] [place] [address] PATHOLOGY AND GENOMIC MEDICINE [facility] [address] [place] [address] * CBC with platelet and differential (03/23/2019 7:55 PM CDT) WBC 8.7 4.2 - 11.0 k/uL [facility] RBC 4.45 4.04 - 5.86 m/uL [facility] HGB 13.9 11.5 - 15.3 g/dL [facility] HCT 41.6 34.0 - 45.0 % [facility] MCV 93.5 80.0 - 98.0 fL [facility] MCH 31.2 27.0 - 34.0 pg [facility] MCHC 33.4 31.5 - 36.5 g/dL [facility] RDW - SD 42.6 37.0 - 51.0 fL [facility] MPV 10.0 7.4 - 10.4 fL [facility] Platelet count 309 150 - 400 k/uL [facility] Nucleated RBC 0.00 /100 WBC [facility] Neutrophils 60.1 36.0 - 66.0 % [facility] Lymphocytes 30.3 24.0 - 44.0 % [facility] Monocytes 6.6 (H) 0.0 - 6.0 % [facility] Eosinophils 2.2 0.0 - 6.0 % [facility] Basophils 0.5 0.0 - 1.2 % [facility] Immature 0.3 0.0 - 1.0 % [place] granulocytes [facility] Specimen Blood Performing Organization Address City/State/Zipcode Phone Number [facility] OF [address] [place] [address] PATHOLOGY AND GENOMIC MEDICINE [facility] [address] [place], [place] [id number] [place] [address] * Lipase level (03/23/2019 7:55 PM CDT) Lipase 23 13 - 60 U/L [facility] Specimen Plasma specimen Performing Organization Address City/[facility] Phone Number [facility] DEPARTMENT OF [address] [place] [address] PATHOLOGY AND GENOMIC MEDICINE [address] * Lactic acid level (03/23/2019 7:55 PM CDT) Lactic acid 1.3 0.5 - 2.2 mmol/L [facility] Specimen Blood Performing Organization Address [facility] Phone Number [facility] DEPARTMENT OF [address] [place] [address] PATHOLOGY AND GENOMIC MEDICINE [address] * Comprehensive metabolic panel (03/23/2019 7:55 PM CDT) Sodium 141 135 - 150 mEq/L [facility] Potassium 3.8 3.5 - 5.0 mEq/L [facility] Chloride 103 98 - 112 mEq/L [facility] CO2 27 24 - 31 mmol/L [facility] Anion gap 11@ANIO 7 - 15 mEq/L [facility] BUN 15 7 - 18 mg/dL [facility] Creatinine 0.80 0.50 - 0.90 mg/dL [facility] Glucose 93 65 - 100 mg/dL [facility] Calcium 9.7 8.3 - 10.2 mg/dL [facility] Protein 8.3 6.3 - 8.3 g/dL [facility] Albumin 4.0 3.5 - 5.0 g/dL [facility] A/G ratio 0.9 0.7 - 3.8 [facility] Alkaline 114 (H) 0 - 104 U/L [place] phosphatase [facility] AST 26 10 - 35 U/L [facility] ALT 22 5 - 50 U/L [facility] Total bilirubin 0.3 0.2 - 1.2 mg/dL [facility] Specimen Plasma specimen Performing Organization Address City/State/Zipcode Phone Number [facility] DEPARTMENT OF [address] [place] [address] PATHOLOGY AND GENOMIC MEDICINE [facility] [address] [place] [address] HOSPITAL * Urinalysis screen and microscopy, with reflex to culture (03/23/2019 7:07 PM CDT) Specimen site Clean catch [facility] Color, UA Yellow [facility] Appearance, UA Clear [facility] Specific 1.025 1.001 - 1.035 [place] gravity, [facility] pH, UA 7.0 5.0 - 8.5 [facility] Protein, UA Negative Negative [facility] Glucose, UA Negative Negative [facility] Ketones, UA Negative Negative [facility] Bilirubin, UA Negative Negative [facility] Blood, UA Negative Negative [facility] Nitrite, UA Negative Negative [facility] Urobilinogen, Negative <2.0 [facility] Leukocyte Negative Negative [place] esterase, [facility] Epithelial Moderate /HPF [place] cells, [facility] WBC, UA 2 0 - 5 /HPF [facility] RBC, UA 2 0 - 5 /HPF [facility] Bacteria, UA Trace None seen [facility] Yeast, UA None seen [facility] Yeast with None seen [place] pseudohyphae, [facility] Specimen Urine Performing Organization Address City/State/Zipcode Phone Number [facility] DEPARTMENT OF [address] [place] [address] PATHOLOGY AND GENOMIC MEDICINE [facility] [address] * hCG qualitative, urine screen (03/23/2019 7:07 PM CDT) hCG Negative Negative [place] qualitative, Comment: [facility] urine The manufacturers stated [place] sensitivity of HcG test for HOSPITAL serum is >/=10 mIU/ml and urine is >/=20mIU/ml. Specimen Urine Performing Organization Address City/State/Zipcode Phone Number [facility] OF [address] [place] [address] PATHOLOGY AND [facility]OMIC MEDIC[facility] [address] [place] [address] HOSPITAL after 04/23/2018 Insurance Type Payer Benefit Subscriber ID Effective Phone Address Plan / Dates Group PPO BCBS BCBS xxxxxxxxxxxx [id number] CHOICE resent PPO/[employer] PPO Advance Directives Patient has advance care planning documents on file. For more information, les e contact: Jonathan Franklin [address] [place] [address]
[2019-04-24] MEDS ORDERED: PANTOPRAZOLE 40 MG 10ML VIAL IV ONE (17:03)
[2019-04-24] MEDS ORDERED: ONDANSETRON HCL INJ 2MG/ML 2ML 2 MG/ML VIAL IV ONE (17:03)
[2019-04-24] MEDS ORDERED: SODIUM CHLORIDE 0.9% 1000ML 1,000 ML IV STA (17:03)
[2019-04-24 17:38] LABS: BASOPHILS % 0.5 % (0.0-1.0); EOSINOPHILS # (AUTO) 0.1 (0.0-0.4); EOSINOPHILS % 1.4 % (0.0-6.0); HEMATOCRIT 35.5 % (34.2-44.1); HEMOGLOBIN 12.7 g/dL (12.0-16.0); LYMPHOCYTES # (AUTO) 2.6 (1.0-3.2); LYMPHOCYTES % 30.7 % (18.0-39.1); MEAN CORPUSCULAR HGB CONC 35.8 g/dL (31-35); MEAN CORPUSCULAR VOLUME 89.4 fL (81-99); MONOCYTES # (AUTO) 0.7 (0.2-0.8); MONOCYTES % 8.4 % (4.4-11.3); NEUTROPHILS # (AUTO) 4.9 (2.1-6.9); NEUTROPHILS % 58.6 % (38.7-80.0); PLATELET COUNT 316 x10e3/uL (140-360); RED BLOOD COUNT 3.97 x10e6/uL (3.6-5.1); RED CELL DISTRIBUTION WIDTH 12.3 % (11.7-14.4)
[2019-04-24 17:39] LABS: BILIRUBIN,URINE NEGATIVE (NEGATIVE); CLARITY,URINE SL CLOUDY (CLEAR); COLOR,URINE YELLOW (YELLOW); KETONES,URINE NEGATIVE (NEGATIVE); LEUKOCYTE ESTERASE ,URINE NEGATIVE (NEGATIVE); NITRITE,URINE NEGATIVE (NEGATIVE); PROTEIN,URINE DIPSTICK NEGATIVE (NEGATIVE); URINE UROBILINOGEN 0.2 mg/dL (0.2 - 1)
[2019-04-24] MEDS: MORPHINE SULFATE INJ 4 MG/ML INJ 1ML IV ONE ×2 (17:42→17:43)
--- NOTE | 2019-04-24 17:44 | NUR ---
PT STATES MORPHINE MAKES HER FEEL BAD AND THEY USUALLY GIVE HER SOMETHING LESS STRONG. C/O RECTAL BLEED CONTRAINDICATES TORADOL PER MD.
[2019-04-24 17:46] LABS: INR 0.92; PROTHROMBIN TIME 12.8 seconds (11.9-14.5)
[2019-04-24 17:47] LABS: PARTIAL THROMBOPLASTIN TIME 31.2 seconds (23.8-35.5)
[2019-04-24 17:49] LABS: AMORPHOUS SEDIMENT,URINE MODERATE (FEW); BACTERIA,URINE FEW /HPF; EPITHELIAL CELLS,URINE RARE /LPF; RBC,URINE 0-5 /HPF (0-5)
[2019-04-24 17:57] LABS: ALANINE AMINOTRANSFERASE 19 IU/L (0-55); ALBUMIN 3.9 g/dL (3.5-5.0); ALBUMIN/GLOBULIN RATIO 1.1 (0.8-2.0); ALKALINE PHOSPHATASE 92 IU/L (40-150); ANION GAP 15.1 mmol/L (8-16); BLOOD UREA NITROGEN 9 mg/dL (7-26); BUN/CREATININE RATIO 12 (6-25); CALCIUM 9.2 mg/dL (8.4-10.2); CARBON DIOXIDE 24 mmol/L (22-29); CHLORIDE 103 mmol/L (98-107); CREATINE KINASE 58 IU/L (29-168); CREATININE, SERUM 0.74 mg/dL (0.57-1.11); EST GLOMERULAR FILTRATION RATE > 60 ML/MIN (60-); GLUCOSE 84 mg/dL (74-118); POTASSIUM 3.1 mmol/L (3.5-5.1); SODIUM 139 mmol/L (136-145)
--- NOTE | 2019-04-24 18:08 | NUR ---
STATES HEADACHE. NOTIFIED AND TYLENOL ORDERED
[2019-04-24] MEDS ORDERED: ACETAMINOPHEN 325 MG TAB ONE (18:36)
[2019-04-24] MEDS ORDERED: ACETAMINOPHEN 325 MG TAB PO ONE (19:00)
--- NOTE | 2019-04-24 19:05 | NUR ---
REPORT TO STANLEY
--- NOTE | 2019-04-24 19:25 | Diagnostic Imaging Report ---
EXAM: CT of the abdomen and pelvis WITH contrast HISTORY: Rectal bleeding, stomach pain, left lower quadrant pain, history of diverticulitis and ulcerative colitis COMPARISON: CT of the abdomen and pelvis October 04, 2017. TECHNIQUE: The abdomen and pelvis were scanned utilizing a multidetector helical scanner. Coronal and sagittal reformats are provided. PROTOCOL: Routine IV CONTRAST: 100 cc of Isovue-370. ORAL CONTRAST: Dilute Gastrografin. RADIATION DOSE: Total DLP: 443.52 mGy*cm Estimated effective dose: (DLP x 0.015 x size factor) Dose modulation, iterative reconstruction, and/or weight based adjustment of the mA/kV was utilized to reduce the radiation dose to as low as reasonably achievable. COMPLICATIONS: None FINDINGS: LOWER THORAX: Unremarkable. HEPATOBILIARY: No mass. No biliary dilation. No calcified gallstone. SPLEEN: No splenomegaly. PANCREAS: No focal masses or ductal dilatation. ADRENALS: No discrete adrenal nodule. KIDNEYS/URETERS: No hydronephrosis, stones, or definite solid mass lesions. PELVIC ORGANS/BLADDER: The visualized pelvic organs appear unremarkable. GI TRACT: No dilation or wall thickening identified. Mild enhancement of the sigmoid mucosa (series 2 image 16). The appendix is normal. PERITONEUM / RETROPERITONEUM: No free air or fluid. LYMPH NODES: No pathologically enlarged lymph node. VESSELS: Unremarkable. BONES and JOINTS: No aggressive osseous lesion or acute fracture. SOFT TISSUES: Unremarkable. IMPRESSION: Findings which could be seen in the setting of a mild ethmoid colitis. Signed by: Dr. Jose Raul Shaw D.O., M.M.M. on 04/24/2019 7:22 PM
[2019-04-24] MEDS ORDERED: IOPAMIDOL 370 MG/ML 200 ML INFUS..BTL INJ ONE (21:26)
[2019-04-24] MEDS ORDERED: SODIUM CHLORIDE 0.9% 50ML 50 ML ONE (21:26)
== END 2019-04-24 19:49 | disposition home or self-care (01) ==
LOC: ER 16:59
DX: K51.80 Other ulcerative colitis without complications (principal); K62.5 Hemorrhage of anus and rectum
CPT/HCPCS: 36415; 74177; 80053; 81001; 82270; 82550; 82553; 84484; 85025; 85610; 85730; 87086; 99284; C9113; J2405; J7030; Q9967